=== PATIENT | female | born 2005 | race Caucasian/White ===

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

== ENCOUNTER 2024-10-16 13:46 | Outpatient (CLI) | payer OTHER, SELFPAY ==
--- NOTE | 2024-10-16 14:00 | CRLHL7_ITS ---
For Patients: As a result of the Century Cures Act, medical imaging exams and procedure reports are released immediately into your electronic medical record. You may view this report before your referring provider. If you have questions, please contact your health care provider. INDICATION: Postcoital and contact bleeding COMPARISON: none TECHNIQUE: 2D payan scale and color Doppler images were acquired of the pelvis using a transabdominal and transvaginal approach. FINDINGS: Sonographic images demonstrate a normal size and smooth outer contour of the uterus. Uterus measures 7.1 cm in length by 2.8 cm in AP diameter by 3.9 cm in transverse dimension. The myometrium has a normal uniform echotexture. The endometrial lining measures 1 mm in composite thickness. The right ovary measures 2.5 x 1.3 x 1.4 cm in size and the left ovary measures 2.5 x 1.0 x 1.6 cm. The ovaries demonstrate normal arterial and venous blood flow on color Doppler analysis. There are no suspicious fluid collections within the cul-de-sac. IMPRESSION: Endometrial thickness 1 millimeter. No endometrial fluid. No uterine fibroid. Normal ovaries. No adnexal mass or excess pelvic free fluid. Dictated by Bryan Kauffman MD @ 10/17/2024 12:30:31 PM (Electronically Signed)
== END 2024-10-16 13:47 | disposition home or self-care (01) ==
LOC: US 13:49
PROVIDERS: PCP Registered Nurse; Visit Provider Physician Assistant
DX: N93.0 Postcoital and contact bleeding (principal); R93.89 Abnormal findings on diagnostic imaging of other specified body structures
CPT/HCPCS: 76830; 76856

== ENCOUNTER 2024-10-29 09:23 | Emergency (ER) | payer OTHER, SELFPAY ==
[2024-10-29 09:36] VITALS: BP 112/77; PULSE 76; RESP 16; TEMP 36.9; O2SAT 97; BMI 20.1
--- NOTE | 2024-10-29 10:17 | CRLHL7_ITS ---
For Patients: As a result of the Century Cures Act, medical imaging exams and procedure reports are released immediately into your electronic medical record. You may view this report before your referring provider. If you have questions, please contact your health care provider. Indication: Syncope Technique: Volumetric multidetector CT images of the head were obtained without the administration of low osmolar intravenous contrast. Comparison: None available Findings: There is no intra-axial or extra-axial fluid collection. There is no mass effect or midline shift. The ventricles and sulci are normal in size and position for age. The brain parenchyma is grossly preserved in attenuation and no-white differentiation. The orbits and their contents are grossly within normal limits. The bony calvarium is grossly intact. The paranasal sinuses are clear. The mastoid air cells are well aerated. Impression: No acute intracranial abnormality. Please note that all CT scans at this facility use dose modulation, iterative reconstruction, and/or weight-based dosing when appropriate to reduce radiation dose to as low as reasonably achievable. Dictated by Basil Jordan MD @ 10/29/2024 11:01:40 AM (Electronically Signed)
--- NOTE | 2024-10-29 10:25 | ED.HEATRA ---
HPI - Head Injury General Chief complaint: Head Injury/Pain Stated complaint: Syncopal, hit head Time Seen by Provider: 10/29/24 09:34 History of Present Illness HPI Narrative: This 19-year-old female comes in for evaluation after a syncopal event that occurred prior to arrival. She was in class standing and began to feel lightheaded and then began to have some visual changes. She loss consciousness and fell to the floor hitting her forehead. She regained consciousness very quickly thereafter. She does report a headache that is mild to moderate. She does not have any other symptoms currently. She has otherwise been in good health. She has an abrasion on her forehead that is superficial and located at the hairline. Related Data Home Medications ?Medication ?Instructions ?Recorded ?Confirmed levonorgestrel-ethinyl estradiol 1 tab PO DAILY 02/25/24 10/29/24 0.1 mg-20 mcg tablet Allergies Allergy/AdvReac Type Severity Reaction Status Date / Time No Known Drug Allergies Allergy Verified 10/29/24 09:43 Review of Systems Status of ROS: Reports: 10 or more systems reviewed and unremarkable except as noted in History and below Narrative: Constitutional: No fevers, no weight gain or loss. Eyes: No discharge. No vision changes. HENT: No congestion, no sore throat, no ear pain. Cardiovascular: No chest pain, no palpitations. Respiratory: No shortness of breath, no wheezes, no cough. Gastrointestinal: No abdominal pain, no vomiting, no diarrhea. Genitourinary: No dysuria, no hematuria. Musculoskeletal: Normal range of motion. Skin: No rashes, no pruritis. Neurological: No dizziness, weakness, sensory change, speech change. Endo/Heme/Allergies: No bruising or bleeding. No polydipsia. Pysch: no suicidality, no anxiety, no insomnia. All other systems reviewed and are negative. [facility] Medical History No significant past medical history Surgical History No significant past surgical history Family History (Updated 08/14/24 @ 11:19 by Lisbeth Pearson PA-C) Father High blood pressure Social History (Updated 08/14/24 @ 11:19 by SALVADOR Burnham Narrative: [employer] student From [employer] Nonsmoker, no illicit drug use Occasional alcohol use Smoking Status: Never smoker Second hand tobacco smoke exposure: No How often do you have a drink containing alcohol: never How often do you have six or more drinks on one occasion: Never AUDIT-C Alcohol total score: 0 Non-prescribed substance use: denies use Exam Narrative: Exam Narrative: Constitutional: Well-developed, well-nourished, no acute distress. HEENT: Small area of erythema on the forehead in the center at the hairline. There is no underlying hematoma and no laceration. Neck: Normal range of motion. Nontender. Supple. Heart: Regular. No murmurs. Normal rate. Intact distal pulses. Lungs: Clear to auscultation. No chest discomfort. No wheezes, rhonchi, or rales. Abdomen: Normal bowel sounds. Nontender. No rebound tenderness. Genitalia: Deferred. Back: No midline tenderness. Normal range of motion. Extremities: Normal range of motion. No injury. Skin: Intact. No rash. Warm. No erythema or pallor. Neurologic: No altered sensation. No weakness. Alert and oriented. Psychiatric: No suicidality. No anxiety or depression. No insomnia. Nursing notes and vitals signs are reviewed. Const: Vital Signs, click to edit/add: Vital Signs - 24 hr 10/29/24 09:36 Temperature 98.5 F Pulse Rate [Pulse Oximeter] 76 Respiratory Rate 16 Blood Pressure [Ri ght Upper Arm] 112/77 Pulse Oximetry 97 Oxygen Delivery Me thod Room Air Course Vital Signs Vital signs: Initial Vital Signs Temperature 98.5 F 10/29/24 09:36 Temperature Source Temporal Artery Scan 10/29/24 09:36 Pulse Rate 76 10/29/24 09:36 Respiratory Rate 16 10/29/24 09:36 Blood Pressure 112/77 10/29/24 09:36 Blood Pressure Mean 88 10/29/24 09:36 Blood Pressure Position Sitting 10/29/24 09:36 Pulse Oximetry 97 10/29/24 09:36 Oxygen Delivery Method Room Air 10/29/24 09:36 Vital Signs Temperature 98.5 F 10/29/24 09:36 Pulse Rate 76 10/29/24 09:36 Respiratory Rate 16 10/29/24 09:36 Blood Pressure 112/77 10/29/24 09:36 Pulse Oximetry 97 10/29/24 09:36 Oxygen Delivery Method Room Air 10/29/24 09:36 Temperature 98.5 F 10/29/24 09:36 Pulse Rate 76 10/29/24 09:36 Respiratory Rate 16 10/29/24 09:36 Blood Pressure 112/77 10/29/24 09:36 Pulse Oximetry 97 10/29/24 09:36 Oxygen Delivery Method Room Air 10/29/24 09:36 MDM - Head Injury MDM Narrative Medical decision making narrative: This patient comes in for evaluation of a syncopal event that occurred prior to arrival. She does have a [id number] headache. Her exam currently is completely normal as is her vital signs. She does have a small area of erythema on her forehead where she hit her head but no sign of fluctuance or hematoma. I did discuss lab and imaging options and she would like to have these done. So CT scan of the head is obtained and returns with no acute findings. Labs also are returning with normal results. I also used bedside ultrasound to evaluate her heart with normal findings. This was reassuring to her. She is okay to be discharged home to resume current plans. Lab Data Labs: Lab Results 10/29/24 Range/Units 10:26 WBC 6.24 (4.50-11.00) K/uL RBC 4.55 (4.00-5.20) m/uL Hgb 12.2 (12.0-16.0) gm/dL Hct 37.5 (33.0-51.0) % MCV 82 (80-100) fL MCH 27 (26-34) pg MCHC 33 (32-36) gm/dL RDW Coeff of Jill 14.0 (11.5-15.5) % Plt Count 263 (140-440) K/uL Neut % (Auto) 57.7 (42.0-72.0) % Lymph % (Auto) 31.9 (20-44) % Long % (Auto) 8.2 (0.0-11.0) % Eos % (Auto) 1.4 (0.0-7.0) % Baso % (Auto) 0.5 (0.0-3.0) % Neut # (Auto) 3.60 (1.7-7.0) K/uL Lymph # (Auto) 1.99 (0.90-2.90) K/uL Long # (Auto) 0.50 (0.00-0.90) K/UL Eos # (Auto) 0.09 (0.00-0.50) K/uL Baso # (Auto) 0.03 (0.00-0.30) K/uL Abs Immat Gran (auto) 0.02 (0.00-0.30) K/uL Imm/Tot Granulo (auto) 0.3 % Sodium 138 (135-149) mmol/L Potassium 4.5 (3.6-5.1) mmol/L Chloride 106 (96-114) mmol/L Carbon Dioxide 23 (20-32) mmol/L Anion Gap 9 (7-15) mEq/L BUN 10 (5-24) mg/dL Creatinine 0.8 (0.5-1.5) mg/dL Estimated Creat Clear 88.36 Estimated GFR 108 ml/min Glucose 87 (60-115) mg/dL Calcium 9.6 (8.4-10.6) mg/dL Imaging Data CT scan - head: Radiologist's impression: No acute intracranial abnormality. Discharge Plan Discharge Clinical Impression: Syncope, Closed head injury Patient Disposition: Home, Self-Care Condition: Improved Additional Instructions: Continue current plans. Use [id number] medicines as needed and directed. Follow up with MD return if worsening. Prescriptions: No Action levonorgestrel-ethinyl estrad 0.1-20 mg-mcg tablet 1 tab PO DAILY Follow Up/Referrals: Terese Arias, [employer], AUTOMATION DEVELOPER [Primary Care Provider] - Stand Alone Forms: MyHealth Info Instructions Procedures Ultrasound Cardiac exam #1: Anatomical areas examined: parasternal long and parasternal short Indications: other Exam type: limited transthoracic echocardiogram Impression: negative exam
[2024-10-29 10:33] LABS: Basophils Absolute Auto 0.03 K/uL (0.00-0.30); Basophils Percent Auto 0.5 % (0.0-3.0); Eosinophils Absolute Auto 0.09 K/uL (0.00-0.50); Eosinophils Percent Auto 1.4 % (0.0-7.0); Hematocrit 37.5 % (33.0-51.0); Hemoglobin* 12.2 gm/dL (12.0-16.0); Immature Granulocytes Abs Auto 0.02 K/uL (0.00-0.30); Immature Granulocytes Pct Auto 0.3 %; Lymphocytes Absolute Auto 1.99 K/uL (0.90-2.90); Lymphocytes Percent Auto 31.9 % (20-44); Mean Corpuscular HGB Conc 33 gm/dL (32-36); Mean Corpuscular Hemoglobin 27 pg (26-34); Mean Corpuscular Volume 82 fL (80-100); Monocytes Percent Auto 8.2 % (0.0-11.0); Neutrophils Percent Auto 57.7 % (42.0-72.0); Platelet Count* 263 K/uL (140-440); Red Blood Count 4.55 m/uL (4.00-5.20); White Blood Count* 6.24 K/uL (4.50-11.00)
[2024-10-29 10:35] LABS: Slide Review Reflex No
[2024-10-29 10:48] LABS: Chloride* 106 mmol/L (96-114); Potassium* 4.5 mmol/L (3.6-5.1); Sodium* 138 mmol/L (135-149)
[2024-10-29 10:51] LABS: Anion Gap 9 mEq/L (7-15); Blood Urea Nitrogen* 10 mg/dL (5-24); Carbon Dioxide* 23 mmol/L (20-32); Creatinine* 0.8 mg/dL (0.5-1.5); Est. Creatinine Clearance* 88.36; Estimated Glomerular Filt Rate 108 ml/min
[2024-10-29 10:52] LABS: Calcium* 9.6 mg/dL (8.4-10.6); Glucose* 87 mg/dL (60-115)
== END 2024-10-29 11:19 | disposition home or self-care (01) ==
PROVIDERS: Emergency Provider Emergency Medicine Emergency Medical Services; PCP Registered Nurse
DX: R55 Syncope and collapse (principal); S09.90XA Unspecified injury of head, initial encounter; W01.198A Fall on same level from slipping, tripping and stumbling with subsequent striking against other object, initial encounter
CPT/HCPCS: 36415; 70450; 76604; 76705; 80048; 85025; 93308; 99284

== ENCOUNTER 2024-10-30 10:55 | Outpatient (CLI) | payer OTHER, SELFPAY | END 2024-10-30 10:56 | disposition home or self-care (01) | LOC: NFLDUCREF 11:04 | PROVIDERS: PCP Registered Nurse; Visit Provider Nurse Practitioner | DX: R42 Dizziness and giddiness (principal) | CPT/HCPCS: 84443 ==

== ENCOUNTER 2024-12-08 16:00 | Outpatient (RCR) | payer OTHER, SELFPAY | END 2025-01-12 11:42 | disposition home or self-care (01) | PROVIDERS: PCP Registered Nurse; Visit Provider Family Medicine | DX: R55 Syncope and collapse (principal); G93.31 Postviral fatigue syndrome; S06.0X0A Concussion without loss of consciousness, initial encounter; H81.90 Unspecified disorder of vestibular function, unspecified ear; G47.9 Sleep disorder, unspecified; M25.60 Stiffness of unspecified joint, not elsewhere classified; R51.9 Headache, unspecified; R26.81 Unsteadiness on feet; Z51.89 Encounter for other specified aftercare | CPT/HCPCS: 97112; 97140; 97161 ==